=== PATIENT | female | born 1945 | race Caucasian/White ===

== ENCOUNTER → 2017-03-16 | Outpatient (CLI) | payer BC ==
--- NOTE | 2017-03-16 13:05 | MAMMOGRAPHY REPORT ---
BILATERAL DIGITAL SCREENING MAMMOGRAM WITH CAD: 03/16/2017 CLINICAL HISTORY: Routine screening. Patient has no complaints. TECHNIQUE: Current study was also evaluated with a Computer Aided Detection (CAD) system. Bilateral CC and MLO views were obtained. COMPARISON: Comparison is made to exams dated: 12/25/2015 mammogram, 12/24/2013 mammogram, 11/20/2012 mamm ogram, 10/06/2011 mammogram, 10/01/2010 mammogram, and 09/30/2009 mammogram - [facility] er. BREAST COMPOSITION: The tissue of both breasts is extremely dense, which lowers the sensitivity of m ammography. FINDINGS: No suspicious masses, calcifications, or areas of architectural distortion are noted in ei ther breast. There has been no significant interval change compared to prior exams. IMPRESSION: ACR BI-RADS CATEGORY 1: NEGATIVE There is no mammographic evidence of malignancy. A 1 year screening mammogram is recommended. The pa tient will receive written notification of the results. Approximately 10% of breast cancers are not detected with mammography. A negative mammographic report should not delay biopsy if a clinically suggestive mass is present. Tabitha Munoz M.D. /:03/16/2017 07:56:24 Material Handler 1St Shift: Alison TOLBERT(Rik)(Alejandrina)(CAROL), [facility] letter sent: Normal 1/2 BI-RADS Code: ACR BI-RADS Category 1: Negative
== END | disposition home or self-care (01) ==
LOC: C.MAMM 07:40
PROVIDERS: ATTEND Physician Assistant Medical
DX: Z12.31 Encounter for screening mammogram for malignant neoplasm of breast (principal)

== ENCOUNTER → 2017-05-24 | Outpatient (CLI) | payer BC ==
[2017-05-24 13:52] LABS: BASO % 1.3 %; BASO ABS # 0.05 K/uL (0-0.2); COMPLETE YES; EOS % 2.1 %; HEMATOCRIT 39.5 % (37-47); LYMPH % 29.1 %; MEAN CELL VOLUME 91.6 fL (80-100); MEAN CORPUSCULAR HEMOGLOBIN 30.6 pg (25-34); MEAN CORPUSCULAR HGB CONC 33.4 g/dl (32-36); MEAN PLATELET VOLUME 9.9 fL (7.4-10.4); NEUT % 53.5 %; PLATELET COUNT 283 K/uL (130-400); RED BLOOD COUNT 4.31 M/uL (4.2-5.4); WHITE BLOOD COUNT 3.78 K/uL (4.8-10.8)
[2017-05-24 14:16] LABS: ALT/SGPT 26 U/L (12-78); BLOOD UREA NITROGEN 14 mg/dl (7-18); BUN/CREATININE RATIO 20.9 (10-20); CALCIUM 9.2 mg/dl (8.5-10.1); CARBON DIOXIDE 31 mmol/L (21-32); CHLORIDE 102 mmol/L (98-107); CREATININE 0.65 mg/dl (0.60-1.20); GLUCOSE 66 mg/dl (70-99); POTASSIUM 4.2 mmol/L (3.5-5.1); SODIUM 137 mmol/L (136-145)
[2017-05-24 14:27] LABS: ALB/GLOB RATIO 1.1 (0.9-2); ALKALINE PHOSPHATASE 86 U/L (45-117); AST/SGOT 26 U/L (15-37)
== END | disposition home or self-care (01) ==
LOC: C.LABBC 10:57
PROVIDERS: ATTEND Physician Assistant
DX: Z00.00 Encounter for general adult medical examination without abnormal findings (principal); M81.0 Age-related osteoporosis without current pathological fracture

== ENCOUNTER 2018-05-15 21:14 | Emergency (ER) | payer BC ==
[~2018-05-15] VITALS: Ht 162.6 cm; Wt 47.4 kg
[2018-05-15 21:21] VITALS: TEMP 36.9; Ht 162.6 cm; Wt 47.4 kg
--- NOTE | 2018-05-15 22:36 | DIAGNOSTIC IMAGING REPORT ---
R ELBOW MIN 3 VIEWS ROUTINE CLINICAL HISTORY: Right elbow pain following fall. COMPARISON: None FINDINGS: Note is made of visualization of the posterior fat pad and prominence of the anterior fat pad consistent with a right elbow joint effusion. There is an acute nondisplaced impacted right radial neck fracture. IMPRESSION: Acute nondisplaced impacted right renal neck fracture with associated right elbow joint effusion. Electronically signed by: Hernando Castañeda M.D. 05/15/2018 10:35 PM Dictated Date/Time: 05/15/2018 10:34 PM
--- NOTE | 2018-05-15 22:37 | DIAGNOSTIC IMAGING REPORT ---
R FOREARM 2 VIEWS ROUTINE CLINICAL HISTORY: Pain and swelling following fall. COMPARISON: None FINDINGS: Note is made of evidence for right elbow joint effusion with an acute impacted nondisplaced right radial neck fracture. No additional fractures of the right radius or ulna are identified. IMPRESSION: Acute impacted nondisplaced right radial neck fracture with associated right elbow joint effusion. Electronically signed by: Hernanod Castañeda M.D. 05/15/2018 10:36 PM Dictated Date/Time: 05/15/2018 10:35 PM
--- NOTE | 2018-05-15 22:40 | DIAGNOSTIC IMAGING REPORT ---
R HAND MIN 3 VIEWS ROUTINE CLINICAL HISTORY: Right hand pain and swelling following fall. COMPARISON: None FINDINGS: Alignment of the right hand is anatomic. No acute fracture is identified. 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 IMPRESSION: No acute fracture or dislocation within the right hand. Electronically signed by: Hernando Castañeda M.D. 05/15/2018 10:39 PM Dictated Date/Time: 05/15/2018 10:38 PM
--- NOTE | 2018-05-15 22:41 | DIAGNOSTIC IMAGING REPORT ---
L WRIST W/NAVICULAR MIN 3 VIEWS CLINICAL HISTORY: Left wrist pain and swelling following fall. COMPARISON: None FINDINGS: Alignment of the left wrist is anatomic. Carpal bones are intact. There is no acute fracture. 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 Slight deformity of the distal left radius is chronic. IMPRESSION: No acute fracture or dislocation within the left wrist. Electronically signed by: Hernando Castañeda M.D. 05/15/2018 10:40 PM Dictated Date/Time: 05/15/2018 10:39 PM
--- NOTE | 2018-05-15 22:57 | EMERGENCY ROOM VISIT NOTE ---
ED Visit Note First contact with patient: 21:34 CHIEF COMPLAINT: Right hand pain, fall down stairs HISTORY OF PRESENT ILLNESS: This 73 year old female patient presents to the emergency department, ambulatory, complaining of pain in the right wrist, forearm, and elbow, as well as left wrist after a fall down stairs 2 days ago while in [place]. She states she missed the last step and fell face first onto the ground. She is uncertain if there was true loss of consciousness, but does report "blacking out." She denies any symptoms prior to the fall including chest pain, dyspnea, headache, dizziness, nausea, or vomiting. There has been no nausea/vomiting since the fall and the patient has been acting normally. There has been no headache, dizziness, or personality change. The patient rates their pain as sharp and 7/10, however states it is improving since return from [place]. The patient has taken Tylenol and ibuprofen for relief of the pain. The patient has not had previous fractures to the upper extremities. The patient does not have any numbness or tingling. The patient denies any other injuries. REVIEW OF SYSTEMS: A 6 system review of systems was completed with positives and pertinent negatives listed in the HPI. ALLERGIES: None MEDICATIONS: Advil, Tylenol, Vitamin D PMH: None SOCIAL HISTORY: The patient lives locally with family. She denies drug, alcohol , tobacco use. PHYSICAL EXAM: Vital Signs: Reviewed Nurse's notes, vital signs stable. GENERAL: This is a 73 year old white female, in no acute distress, well- developed, well-nourished. SKIN: The skin was without rashes, erythema, edema, warmth. There is bruising on the right posterior elbow, mid forearm, and hand. There is also bruising on the left wrist and hand. Capillary reflex less than 3 seconds. MUSCULOSKELETAL: The patient is holding their elbow in an arm sling. There is tenderness over the inferior aspect of the right elbow. There is tenderness with full flexion and extension of the right elbow. There is no tenderness of the shoulder, however there is tenderness of the right forearm and hand. There is tenderness and ecchymosis of the left wrist on palpation. There is guarding with full flexion and extension of the wrist. The patient is able to give a thumbs up, make an OK sign, and a #3 with their fingers bilaterally. Radial pulse 2+. HEAD: Normocephalic. Contusion of the right eye but no open wounds. No tenderness to palpation. EYES: Pupils are equal round and reactive to light and accommodation. EOMs are full and optic discs and fundi are normal. There is mild swelling with ecchymosis of the tissue surrounding the right eyes. EARS: External auditory canals clear without blood. Negative Battles' Sign. NOSE: Patent without tenderness. No septal hematoma. FACE: No facial tenderness. NECK: Supple. There is no cervical spine tenderness. The patient does not have tenderness with movement of the neck. NEURO: Patient was alert and oriented to person place and time. Normal sensation to light and sharp touch. Normal Mini-Mental status exam RADIOLOGY: R ELBOW MIN 3 VIEWS ROUTINE CLINICAL HISTORY: Right elbow pain following fall. COMPARISON: None FINDINGS: Note is made of visualization of the posterior fat pad and prominence of the anterior fat pad consistent with a right elbow joint effusion. There is an acute nondisplaced impacted right radial neck fracture. IMPRESSION: Acute nondisplaced impacted right renal neck fracture with associated right elbow joint effusion. Electronically signed by: Hernando Castañeda M.D. 05/15/2018 10:35 PM Dictated Date/Time: 05/15/2018 10:34 PM R FOREARM 2 VIEWS ROUTINE CLINICAL HISTORY: Pain and swelling following fall. COMPARISON: None FINDINGS: Note is made of evidence for right elbow joint effusion with an acute impacted nondisplaced right radial neck fracture. No additional fractures of the right radius or ulna are identified. IMPRESSION: Acute impacted nondisplaced right radial neck fracture with associated right elbow joint effusion. Electronically signed by: Hernando Castañeda M.D. 05/15/2018 10:36 PM Dictated Date/Time: 05/15/2018 10:35 PM R HAND MIN 3 VIEWS ROUTINE CLINICAL HISTORY: Right hand pain and swelling following fall. COMPARISON: None FINDINGS: Alignment of the right hand is anatomic. No acute fracture is identified. 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 IMPRESSION: No acute fracture or dislocation within the right hand. Electronically signed by: Hernando Castañeda M.D. 05/15/2018 10:39 PM Dictated Date/Time: 05/15/2018 10:38 PM L WRIST W/NAVICULAR MIN 3 VIEWS CLINICAL HISTORY: Left wrist pain and swelling following fall. COMPARISON: None FINDINGS: Alignment of the left wrist is anatomic. Carpal bones are intact. There is no acute fracture. 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 Slight deformity of the distal left radius is chronic. IMPRESSION: No acute fracture or dislocation within the left wrist. Electronically signed by: Hernando Castañeda M.D. 05/15/2018 10:40 PM Dictated Date/Time: 05/15/2018 10:39 PM EMERGENCY DEPARTMENT COURSE: I examined the patient. X-rays performed and reviewed by myself and radiologist as above. I was concerned due to the head injury, however the patient declined CT scanning at this time. I did discuss with her the risks associated with missing an acute intracranial hemorrhage. She has not experienced any changes in personality and denies any neurological symptoms. Her examination is normal. I do feel that this is reasonable, and her is willing to monitor for changing mental status. The patient was offered analgesics and declines. The patient was placed in a posterior long- arm Ortho-Glass splint under my direction and the position was satisfactory. Neurovascular status was rechecked and intact. The patient does have an arm sling, was encouraged to use this with the splint. She was encouraged to follow -up this week with orthopedics outpatient. Discharge instructions reviewed. The patient was discharged home in stable condition. I attest that I have personally reviewed the patient's current medication list. Patient was found to have normal blood pressure on screening and does not require follow-up. Differential diagnosis includes closed head injury, concussion, intracranial hemorrhage, skull fracture, contusion, headache, infection, malignancy, soft tissue injury, fracture, dislocation, neurovascular compromise, compartment syndrome, as well as others were entertained. DIAGNOSIS: Fall, closed head injury, right radial neck fracture, left wrist contusion The chart was completed utilizing [employer] Speech voice recognition software. Grammatical errors, random word insertions, pronoun errors, and incomplete sentences are an occasional consequence of this system due to software limitations, ambient noise, and hardware issues. Any formal questions or concerns about the content, text, or information contained within the body of this dictation should be directly addressed to the provider for clarification. Current/Historical Medications Miscellaneous Medications None (Patient States No Home Meds) Allergies Coded Allergies: No Known Allergies (Unverified , 05/15/18) Vital Signs Date Time Temp Pulse Resp B/P (MAP) Pulse Ox O2 Delivery O2 Flow Rate FiO2 05/15/18 23:21 88 18 115/80 99 Room Air 05/15/18 23:21 84 18 134/72 97 05/15/18 21:21 36.9 112 18 138/80 99 Room Air Departure Information Impression Primary Impression: Fracture of radial neck, right, closed Additional Impressions: Fall Contusion of left wrist Closed head injury Dispostion Home / Self-Care Condition GOOD Referrals Kirti Gibbons MD (PCP) [facility] Patient Instructions ED Fx Radial Head, ED Splint Care [employer]erg[employer], [facility] Additional Instructions You were seen in the ED today for a right radial neck fracture. Ibuprofen(Motrin, Advil) may be used for fever or pain. Use 600mg every six hours as needed. Take with food. Avoid using more than 2400mg in a 24 hour period. Do not use 2400mg per day for more than three consecutive days without physician direction. Prolonged inappropriate use can lead to stomach upset or ulcers. (AND/OR) Acetaminophen(Tylenol) may be used for fever or pain. Use 1000mg every six hours as needed. Avoid using more than 3000mg in a 24 hour period. Ice compresses for 20 minutes at a time four times daily for 2-3 days. Use the sling as instructed. Remove your arm from the sling 4-6 times a day and move all the joints around to keep them loose. Rest and elevate your injury. Do not get the splint wet. If your splint feels excessively tight, you have worsening pain, develop numbness or tingling, or your digits appear blue, loosen the mari wrap. Then reapply the mari wrap gently without removing the splint. If your symptoms are not quickly relieved return to the ER for re- evaluation. Return to the ER immediately for any numbness, tingling, severe pain, extreme swelling in the extremity or as needed. Call [facility], [phone], tomorrow to arrange follow up for your injury. Problem Qualifiers Primary Impression: Fracture of radial neck, right, closed Encounter type: initial encounter Fracture alignment: nondisplaced Qualified Codes: S52.134A - Nondisplaced fracture of neck of right radius, initial encounter for closed fracture Additional Impressions: Fall Encounter type: initial encounter Qualified Codes: W19.XXXA - Unspecified fall, initial encounter Contusion of left wrist Encounter type: initial encounter Qualified Codes: S60.212A - Contusion of left wrist, initial encounter Closed head injury Encounter type: initial encounter Qualified Codes: S09.90XA - Unspecified injury of head, initial encounter
[2018-05-15 23:21] VITALS: BP 115/80; PULSE 88; O2SAT 99
== END 2018-05-15 23:23 | disposition home or self-care (01) ==
LOC: C.EDB 21:15 → C.EDD 23:23
DX: S52.134A Nondisplaced fracture of neck of right radius, initial encounter for closed fracture (principal); S60.212A Contusion of left wrist, initial encounter; S09.90XA Unspecified injury of head, initial encounter; W10.9XXA Fall (on) (from) unspecified stairs and steps, initial encounter